=== PATIENT | male | born 1980 | race Hispanic/Latino ===

== ENCOUNTER 2020-06-26 16:44 | Emergency (ER) | payer SELFPAY ==
[2020-06-26 17:43] LABS: BASOPHILS % (AUTO) 0.5 % (0.0-5.0); EOSINOPHILS % (AUTO) 1.2 % (0.0-8.0); HEMATOCRIT 45.9 % (42-54); LYMPHOCYTES % (AUTO) 28.7 % (21.0-51.0); MEAN CORPUSCULAR HEMOGLOBIN 31.8 pg (27.0-33.0); MEAN CORPUSCULAR HGB CONC 33.8 g/dL (32.0-36.0); MEAN CORPUSCULAR VOLUME 94.1 fL (79-99); MONOCYTES % (AUTO) 4.8 % (3.0-13.0); NEUTROPHILS % (AUTO) 64.5 % (40.0-77.0); PLATELET COUNT (AUTO) 310 K/uL (130-400); RED BLOOD CELL COUNT(AUTO) 4.88 MIL/uL (4.50-6.20); RED CELL DISTRIBUTION WIDTH 12.4 % (11.0-15.5); WHITE BLOOD COUNT (AUTO) 9.2 K/uL (4.8-10.8)
[2020-06-26 17:47] LABS: APPEARANCE,URINE Clear (CLEAR); BILIRUBIN,URINE Negative (NEGATIVE); COLOR,URINE Yellow (YELLOW); GLUCOSE, URINE (UA) Negative (NEGATIVE); KETONES,URINE Trace mg/dL (NEGATIVE); LEUKOCYTE ESTERASE ,URINE Negative (NEGATIVE); NITRATE,URINE Negative (NEGATIVE); OCCULT BLOOD,URINE Negative (NEGATIVE); PROTEIN,URINE Negative (NEGATIVE)
[2020-06-26 17:56] LABS: AMPHET/METH SCREEN,URINE NEGATIVE (NEGATIVE); BARBITURATE SCREEN, URINE NEGATIVE (NEGATIVE); BENZODIAZEPINES SCREEN,URINE NEGATIVE (NEGATIVE); CANNABINOID SCREEN,URINE POSITIVE (NEGATIVE); COCAINE SCREEN,URINE POSITIVE (NEGATIVE); OPIATE SCREEN,URINE POSITIVE (NEGATIVE); PHENCYCLIDINE SCREEN,URINE NEGATIVE (NEGATIVE)
[2020-06-26 17:59] LABS: CREATININE 0.9 mg/dL (0.5-1.5); POTASSIUM 3.8 mmol/L (3.5-5.1)
[2020-06-26 18:04] LABS: ALBUMIN 3.9 g/dL (3.5-5.0); BILIRUBIN,TOTAL 0.3 mg/dL (0.2-1.0); TOTAL PROTEIN, SERUM 8.2 g/dL (6.0-8.3)
== END 2020-06-26 18:46 | disposition home or self-care (01) ==
LOC: EDH 16:44
DX: R07.89 Other chest pain (principal); R05 Cough; Z20.828 Contact with and (suspected) exposure to other viral communicable diseases; Z72.0 Tobacco use
CPT/HCPCS: 36415; 71045; 80053; 80305; 81003; 82550; 84484; 85025; 87880; 93005; 99285; U0003

== ENCOUNTER 2022-05-17 11:19 | Emergency (ER) | payer OTHER ==
[~2022-05-17] VITALS: Ht 170.2 cm; Wt 63.5 kg
[2022-05-17] MEDS ORDERED: ORPHENADRINE CITRATE 30 MG/ML ML IM ONE (12:00)
[2022-05-17] MEDS ORDERED: KETOROLAC 30MG VIAL (30MG/ML) IM ONE (12:00)
[2022-05-17 14:18] VITALS: BP 109/66
[2022-05-17] MEDS ORDERED: CYCL10TA16 PO (15:33)
[2022-05-17] MEDS ORDERED: NAPR500T6 PO (15:33)
== END 2022-05-17 16:00 | disposition home or self-care (01) ==
LOC: EDH 11:19
DX: M62.830 Muscle spasm of back (principal); M54.2 Cervicalgia
CPT/HCPCS: 99284; 72040; 72100; 72072; 96372 ×2; J1885; J2360

== ENCOUNTER 2024-08-18 00:46 | Emergency (ER) | payer SELFPAY ==
[~2024-08-18] VITALS: Ht 170.2 cm; Wt 74.8 kg
[~2024-08-18 00:46] MED LIST: CYCL10TA16 PO; NAPR-1506 PO
[2024-08-18 00:47] VITALS: BP 125/79; PULSE 75; RESP 16; TEMP 97.3
[2024-08-18] MEDS: ibuPROFEN 600 MG TABLET PO ONE (01:11)
--- NOTE | 2024-08-18 01:23 | ERN ---
General Chief Complaint: Wound Check Stated Complaint: HEAD WOUNDS Time Seen by MD: 00:48 History of Present Illness Initial Comments 44-year-old male who comes in with a chief complaint of posterior scalp pain. Patient reports that he was cutting a muffler a month ago and reports laying his head back on some threads of metal". Patient reports having increased itching and scratching over his posterior scalp. Patient denies any other symptoms. 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 05/17/22 Past Medical History Past Medical History: Other Medical History Other: BACK INJURY Past Surgical History: None ROS Dictation Constitutional: Negative for fever,chills, and weight loss Eyes: Negative for injury, pain,redness, and discharge ENT: Negative for injury,pain or swelling Cardiovascular: Negative for chest pain, palpitations, and edema Respiratory: Negative for shortness of breath, cough, and wheezing, Abdomen/GI: Negative for abdominal pain, nausea, vomiting, diarrhea, and constipation Back: Negative for injury and pain : Negative for injury, bleeding and discharge MS/Extremity: Negative for injury and deformity Skin: Pruritus of the posterior scalp Neuro: Negative for headache, weakness, numbness, tingling, and seizure Psych: Negative for suicide ideation, homicidal ideation, and hallucinations Physical Exam Physical Exam Dictation General: awake, alert, NAD Head/Face: Normocephalic, atraumatic Eyes: PERRL, EOMI, vision at baseline ENT: oral cavity clear Neck: Trachea midline, supple Cardiovascular: RRR, normal S1/S2, No MRGs, no JVD Respiratory: CTAB, no respiratory distress, No rales or wheezes Abdomen: Soft, non-tender, non-distended, normal bowel sounds, no guarding or rebound. Skin: Examination and posterior scalp shows no inflammation, deposits of any mental or acute deformity. MS/Extremity: Pulses equal, no cyanosis, neurovascular intact, FROM Neuro: COAx4, GCS 15, strength 5/5, CN 2-12 intac, MDM Patient after having scalp examination has no acute pathology. Patient asked to follow up with his primary. Patient to take something for his pruritus. MDM: Differential diagnosis: Pruritus Rationale: Tests considered and ordered secondary to shared decision making include: Previous outside records reviewed: Old ER visits. Risk of complication and/or morbidity or mortality of patient management: None Medications-Per medication reconciliation Need for hospitalization: Patient does not meet criteria for hospitalization. Need for emergency major/minor surgery: No There are no social concerns with this patient. Prescription drug management Prescriptions will include symptomatic care Patient's prior external medical records from other ER visits were reviewed by me as indicated. Prior testing and results from previous visits were reviewed. Prior tests were taken into account with medical decision making and resource utilization, independent historian/historians were used to obtain complete me dical history. I independently interpreted the test that were performed, results were reviewed by me and considered findings on radiology if ordered. Medical management and examination interpretation discussions were had by me with other qualified healthcare professionals as indicated for the patient's care. ED Course Orders Procedure Category Date Status Time Ibuprofen 600 Mg PHA 08/18/24 In Process Tablet (Motrin) 01:30 Current Medications Medications (Trade) Dose Ordered Sig/Milka Route PRN Reason Start Time Stop Time Status Last Admin Dose Admin Ibuprofen (moTRIN) 600 mg ONCE ONCE PO 08/18/24 01:30 08/18/24 01:31 08/18/24 01:11 Vital Signs Date Time Temp Pulse Resp B/P (MAP) Pulse Ox O2 Delivery O2 Flow Rate FiO2 08/18/24 00:47 97.3 75 16 125/79 98 Room Air DX & DISP Disposition: Discharge Departure Impression: Primary Impression: Pruritus Condition: Stable Referrals: SELF,REFERRAL (PCP) RASHAD JOSHUA MD Aug 18, 2024 01:23
== END 2024-08-18 01:32 | disposition home or self-care (01) ==
LOC: EDH 00:46
DX: L29.9 Pruritus, unspecified (principal)
CPT/HCPCS: 99282